=== PATIENT | female | born 1940 | race Caucasian/White ===

== ENCOUNTER 2025-06-09 13:30 | Outpatient (AMB) | payer OTHER, SELFPAY ==
[2025-06-09 13:40] VITALS: BMI 30.8
--- NOTE | 2025-06-09 13:40 | A.PHYSOV_ITS ---
Vital Signs 06/09/25 13:40 Height 5 ft 5 in Weight 185 lb BMI 30.8 Intake Visit Reasons: Bilateral knee injections Intake Note: Patient is a 84 year old female here today for bilateral knee pain. Senior Commissary Agent Required: No Allergies No Known Allergies Allergy (Verified 06/09/25 13:41) [facility] Social History Alcohol intake: current Alcohol intake frequency: does not drink Patient Tobacco Use Status: Never used Tobacco Physical Exam Vital Signs: BMI result Body Mass Index 30.8 Office Procedures AMB Knee Injection AMB Knee Injection Procedure Details: Bilateral Knee injection: The risks, benefits and complications of the left knee injection were discussed with the patient including but not limited to increased serum glucose, infection, nerve pain, fat atrophy, pigment augmentation, bleeding and pain. All questions were answered to the patient's satisfaction. Verbal consent was obtained. The patient was eager to proceed. Using aseptic technique with Betadine, ethyl chloride was then used to desensitize the skin. Using a 22-gauge needle 40 mg of Kenalog and 3 mL 2% lidocaine were injected into the knee joint. A Band-Aid was applied. Patient tolerated the procedure well without immediate complication. Postinjection instructions were given. The procedure was repeated on the right. Knee Injection - : Bilateral All charges added?: Procedure code (CPT) selection complete Office Meds Kenalog 40 mg/mL suspension for injection Performing Provider: RAJEEV Centeno Performing Location: [facility] Administered by: RAJEEV Centeno on 06/09/25 17:32 Dose Route Admin Location Dispensed Lot Number Expiration Date [facility] [employer] 40 mg intra-articular 1 mL [id number] [employer] Total Dispensed Waste 1 mL 0 % lidocaine (PF) 20 mg/mL (2 %) injection solution Performing Provider: RAJEEV Centeno Performing Location: [facility] Administered by: RAJEEV Centeno on 06/09/25 17:32 Dose Route Admin Location Dispensed Lot Number Expiration Date [facility] [employer] Traffic [employer] 60 mg intra-articular 5 mL [id number] [employer] Total Dispensed Waste 5 mL 40 % Assessment & Plan Assessment & Plan (1) Bilateral primary osteoarthritis of knee: Code(s): M17.0 - Bilateral primary osteoarthritis of knee Category: Medical Plan Ms. Wagner is a 84-year-old female seen in evaluation today for bilateral knee osteoarthritis. Today she consented to bilateral knee corticosteroid injection. She was given post-injection instructions, recommend: Moist heat compresses for 15 minutes up to 5 times daily. Continue low-impact activities such as walking, biking and swimming. Follow-up with our office as needed. Thank you for allowing me to participate in the care of your patient. Orders: Orders AMB Knee Injection Today M17.0 - Bilateral primary osteoarthritis of knee Coding Level of Care Code Procedure Only Diagnoses Bilateral primary osteoarthritis of knee M17.0 CPT Codes AMB Knee Injection - Hip/Bursa Injection - 83670: Bilateral ([id number])
--- OUTSIDE RECORDS SUMMARY | 2025-06-09 19:39 | XMS_ITS | Encounter Summary ---
Author Organization [facility] Address [address] [place] [address] Care Team Providers Care Electrical Tester Name Role Phone Crys Pwoer MD Primary Care Provider [phone] Encounter Details Date Type Department Care Team (Late st Contact Info) Description 03/27/2025 Lab Requisition [facility] - Main Lab [address] [facility] [place] [address] [place] [address] [place] [address] Frequency of micturition Social History Tobacco Use Types Packs/Day Years Used Date Smoking Tobacco: Never Smokeless Tobacco: Never Alcohol Use Standard Drinks/Week Comments Yes 0 (1 standard drink = 0.6 oz pur e alcohol) Housing Instability Answer Date Recorde d Are you worried that in the next 2 months you may not have stable housing? No 09/02/2024 Food Access & Nutrition Answer Date Rec orded Do you have access to a vari ety of food including fruits and vegetables? Yes 09/02/2024 Access to Healthcare Answer Date Record ed Within the last 3 months, ho w many times did you visit the emergency department for your medical care? 0 09/02/2024 Health Literacy Answer Date Recorded How often do you need to hav e someone help you when you read instructions, pamphlets, or other written material from your doctor or pharmacy? Never 09/02/2024 Caregiver: How often do you need to have someone help you when you read instructions, pamphlets, or other written material from your doctor or pharmacy? Not on file 09/02/2024 Financial Risk Answer Date Recorded How hard is it for you to pa y for the very basics like food, housing, medical care, and air conditioning / heating? Not very hard 09/02/2024 Transportation Answer Date Recorded Has the lack of transportati on kept you from meetings, work, or from getting things needed for daily living? No Has the lack of transportati on kept you from medical appointments or from getting medications? No 09/02/2024 Social Isolation Answer Date Recorded How often do you feel lonely or isolated from th ose around you? Rarely 09/02/2024 Food Risk Answer Date Recorded Within the past 12 months we worried whether our food would run out before we got money to buy more. Never true 09/02/2024 Within the past 12 months th e food we bought just didn't last and we didn't have money to get more. Never true 09/02/2024 Dependent Care Answer Date Recorded Do you need help finding or paying for care for your loved ones. For example, director child or elderly care for an older adult? No 09/02/2024 Education Answer Date Recorded Do you think completing more education or training, like finishing a GED, going to college, or learning a trade, would be helpful for you? No 09/02/2024 Employment and Income Answer Date Recor ded During the last four weeks, have you been actively looking for work? No 09/02/2024 Living Situation Answer Date Recorded What is your living situation? Unrecognized valu e 09/02/2024 Comments No Sex and Gender Information Value Date Recorded Sex Assigned at Female 05/07/2024 1:50 PM EST Legal Sex Female 7:41 AM EST Gender Identity Female 05/07/2024 1:50 PM EST Sexual Orientation Not on file documented as of this encounter Plan of Treatment Upcoming Encounters Date Type Department Care Team (Late st Contact Info) Description 07/16/2025 10:30 AM EST Ancillary Procedure [facility] - [facility] [address] [facility] [address] [place] [address] 10/06/2025 10:00 AM EDT Office Visit Adult Medicine [address] [phone] Geeta Alvarez PA [address] [place], [place] documented as of this encounter Procedures Procedure Name Priority Date/Time Associated Diagnosis Comments BACTERIAL IDENTIFICATION AND SUSCEPTIBILITY, AEROBIC Routine 03/26/2025 12:00 AM EDT Frequency of micturition documented in this encounter Results * Baterial identification and susceptibility, aerobic (03/26/2025 12:00 AM EDT) Culture, Bacterial ID and Sensitivity Light Normal Urogenital carmencita. 03/27/2025 11:46 AM EDT [facility] Other Urine specimen from urethra / Unknown 03/26/2025 03/27/2025 10:55 AM EDT us [facility] MICROBIOLOGY - GENERAL ORDERABLES Final Result [facility] [address] [place] [address], documented in this encounter Visit Diagnoses Diagnosis Frequency of micturition Urinary frequency documented in this encounter Additional Health Concerns Assessment Noted Time PHQ-9 Depression Total Score: 0 09/03/19 25 10:55 AM EDT documented as of this encounter Care Teams Electrical Tester Relationship Specialty Start Date End Date Crys Power MD [address] [place], [place] PCP - General 02/07/05 documented as of this encounter
--- OUTSIDE RECORDS SUMMARY | 2025-06-09 19:39 | XMS_ITS ---
[facility] Name [facility] Organization Unknown Encounters Encounter Type Encounter Reason Primary Diagnosis Location Date [facility] 05/27/2025 [facility] 05/06/2025 [facility] 04/29/2025 [facility] 04/22/2025 [facility] 04/15/2025 Care Team Organization Name Specialty Phone Email Start Date End [facility] 04/16/2025
--- OUTSIDE RECORDS SUMMARY | 2025-06-09 19:39 | XMS_ITS | Encounter Summary ---
[facility] Address [address] [place] [address] Care Team Providers Care Tread Booker Name Role Phone Crys Power MD Primary Care Provider [phone] Encounter Details Date Type Department Care Team (Late st Contact Info) Description 04/08/2025 Results Follow-Up Adult Medicine [facility] [address] [place], [place] [phone] Crys Power MD [address] [place], [place] Social History Tobacco Use Types Packs/Day Years [...] care for your loved ones. For example, children's minister or elderly care for an older adult? [...] Description 07/16/2025 10:30 AM EST Ancillary Procedure [facility] - [facility] [address] [facility] [address] [place] [address] 10/06/2025 10:00 AM EDT Office Visit Adult Medicine [address] [phone] Geeta Alvarze PA [address], [place] documented as of this encounter Visit Diagnoses Not on filedocumented in this encounter Additional Health Concerns Assessment Noted Time PHQ-9 Depression Total Score: 0 09/03/19 25 10:55 AM EDT documented as of this encounter Care Teams Tread Booker Relationship Specialty Start Date End Date Crys Power MD [address], [place] PCP - General 02/07/05 documented as of this encounter
--- OUTSIDE RECORDS SUMMARY | 2025-06-09 19:39 | XMS_ITS | Data Portability ---
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 Audiometric testing was repeated with results as noted below. Overall mild worsening of her hearing bilaterally consistent with presbycusis. I recommended full-time use of left-sided amplification, particularly in light of the recent data looking at the connection between untreated hearing loss and dementia, accidents, and falls. She will continue to follow-up with her wastewater engineer Manda Abel for hearing aid maintenance. We will set her up for a hearing aid maintenance visit with Manda. We did discuss the fact that she would be a good candidate to consider amplification for the right ear, and they can discuss this in more detail if she would like. Not available 10/23/2024 15:38:05 Plan of Treatment Reminders Order Date Submit Date Provider Last Modified By Organization Details Last Modified Time Details Appointments None record ed. Lab None record ed. Referral None record ed. Procedures None record ed. Surgeries None record ed. Imaging None record ed. Medication Orders None record ed. Patient TargetsNo targets recorded. Patient InstructionsNo instructions recorded. Reason for Referral None Reported. Results Created Date Observation Date Name Description Value Unit Range Abnormal Flag Note LastModifiedBy Organization Detail LastModifiedTime 10/25/19 audio gram No observ ation record ed. BARCODE Not Available 2024 09:58:56 10/25/1910/10/2024 MRI, orbit s + neck, w/wo contr ast No observ ation record ed. [email or web address] Not Available 06/2024 11:22:06 Result Notes None recorded. 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; Note: Date Diagnose d: 7 4:40 PM (D10.4) Not Available [facility] 4 02:13:21 Tinnitus of vascular origin 675380147 Completed 202001/26/2024 Pulsatil e tinnitus , left ear; Note: Date Diagnose d: 1 11:30 AM (H93.A2) Not Available [facility] 4 02:15:39 Sensorin eural hearing loss of bilatera l ears 264733588 Active 2020 Sensorin eural hearing loss, bilatera l; Note: Date Diagnose d: 1 1:35 PM (H90.3) Not Available [facility] 4 02:13:52 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; Note: Date Diagnose d: 1 1:12 PM (D44.7) Not Available [facility] 4 02:12:46 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 and related structur es: Glomus jugulare ; Note: Date Diagnose d: 1 1:12 PM (227.6) Not Available [facility] 4 02:15:25 Follow-u p visit Active 2020 Medical surveill ance followin g complete d treatmen t; Note: Date Diagnose d: 04/05/20 21 3:45 PM (Z09) Not Available [facility] 4 02:14:05 Mixed conducti ve and sensorin eural hearing loss of left ear 30326306950 107 Active 2020 Mixed conducti ve and sensorin eural hearing loss, unilater al, left ear with restrict ed hearing on the contrala teral side; Note: Date Diagnose d: 05/11/20 21 2:36 PM (H90.A32 ) Not Available [facility] 4 02:15:14 Dysphoni a 95838741 Active 2021 Hoarsene ss; Note: Date Diagnose d: 2 11:30 AM (R49.0) Not Available [facility] 4 02:14:18 Impacted cerumen in left ear 94341715146 64505 Active 2021 Impacted cerumen, left ear; Note: Date Diagnose d: 04/07/20 22 10:29 AM (H61.22) FAITH BHARDWAJ MD [address] [facility] [place],[facility], [place], [address] , [facility] - [facility] 5 14:27:23 Tinnitus of left ear 73410937480 06 Active 2021 Tinnitus , left ear; Note: Date Diagnose d: 04/07/20 22 11:04 AM (H93.12) Not Available [facility] 4 02:12:52 Sensorin eural hearing loss of bilatera l ears 798909841 Active 2024 FAITH BHARDWAJ MD [address] [facility] [place] [address], [place], [address] , [facility] - [facility] 5 15:32:36 Problem Notes None recorded. Procedures Surgical History Date Name Laterality Status Provider Name and Address Organization Details Recorded Time 5 Comp Audio with Tymps - 42663 & 48714 completed EDWIN RODRIGUEZ [place], CCC-A [address] [facility], [place], [address], [facility] - [facility] 10/23/2024 15:11:43 5 Cerumen removal with microscope left completed FAITH BHARDWAJ MD [address] [facility],[place] [address], [place], [address], [facility] - [facility] 10/23/2024 14:27:08 Imaging Results None recorded. Procedure Notes None recorded. Medical Equipment None Reported. Allergies Allergen ID Allergen Name Allergen Category Reaction Reaction Severity Criticality Documentation Date Start Date Code Code System Note Provider Name and Address Organization Details Recorded Time 24564 Bactrim medicatio n other Not available Not available 11/07/2023 41668 9 RxNorm React ion: unkno wn, unspe cifie d;; Not Available [facility] 4 00:48:27 31290 amoxicill in medicatio n other Not available Not available 11/07/2023 723 RxNorm React ion: unkno wn, unspe cifie d;; Not Available [facility] 4 00:48:31 Medications Name Sig Start Date Stop Date Status Note LastModified by Organization Details LastModified Time oxybutyni n chloride ER 10 mg tablet,ex tended release 24 hr 10/23 completed Medicati on ID: [id number] B rand Name: oxybutyn in chloride Send Method: E-Prescr ibed Sub s Allowed: subs OK Medic ationGen ericName : oxybutyn in chloride Not Available Not Available Not Available ofloxacin 0.3 % eye drops 4 drop 10/23 completed Medicati on ID: [id number] D uration Value: 14 Prescri bed By Name: PALMIRA Barron nd Name: ofloxaci n Send Method: E-Prescr ibed Sub s Allowed: subs OK Speci al Instruct ion: apply 4 drops to left ear twice daily x 2 weeks Me dication GenericN guille: ofloxaci n Not Available Not Available Not Available benzonata te 200 mg capsule TAKE 1 CAPSULE BY MOUTH THREE TIMES DAILY 10/23 completed Not Available Not Available Not Available spironola ctone 25 mg tablet TAKE 1 TABLET BY MOUTH DAILY active Not Available Not Available No t Available carvedilo l 3.125 mg tablet TAKE 1 TABLET BY MOUTH TWICE DAILY WITH MEALS active Not Available Not Available No t Available erythromy priya 5 mg/gram (0.5 %) eye ointment APPLY A SMALL AMOUNT INTO BOTH EYES FOUR TIMES A DAY TO INCISION SITES FOR 1 WEEK. active Not Available Not Available No t Available neomycin- polymyxin -dexameth 3.5 mg/mL-10, 000 unit/mL-0 .1% eye drops SHAKE LIQUID AND INSTILL 1 DROP IN LEFT EYE FOUR TIMES DAILY FOR 2 WEEKS THEN STOP 10/23 completed Not Available Not Available Not Available losartan 25 mg tablet TAKE 1 TABLET BY MOUTH DAILY active Not Available Not Available No t Available omeprazol e 20 mg capsule,d elayed release TAKE 1 CAPSULE BY MOUTH DAILY active Not Available Not Available No t Available furosemid e 20 mg tablet TAKE 1 TABLET BY MOUTH DAILY active Not Available Not Available No t Available lovastati n 20 mg tablet TAKE 1 TABLET BY MOUTH AT BEDTIME active Not Available Not Available No t Available oxycodone 5 mg tablet 1 tablet by mouth 10/23 completed Medicati on ID: [id number] D uration Value: 3 Prescri bed By Name: Julia Chacon nd Name: oxycodon e Send Method: E-Prescr ibed Sub s Allowed: subs OK Medic ationGen ericName : oxycodon e Not Available Not Available Not Available neomycin 3.5 mg/g-poly myxin B 10,000 unit/g-de xameth 0.1 % eye oint APPLY A SMALL AMOUNT ON EYELID FOUR TIMES A DAY. APPLY TO INCISION SITE FOR ONE WEEK THEN STOP. 10/23 completed Not Available Not Available Not Available escitalop tara 10 mg tablet 10/04 completed Medicati on ID: [id number] D uration Value: 90 Brand Name: escitalo pram oxalate Send Method: E-Prescr ibed Sub s Allowed: subs OK Speci al Instruct ion: TK 1 T PO D Medica tionGene ricName: escitalo pram oxalate Not Available Not Available Not Available escitalop tara 20 mg tablet TAKE 1 TABLET BY MOUTH DAILY active Not Available Not Available No t Available hydrochlo rothiazid e 12.5 mg tablet 10/23 completed Medicati on ID: [id number] D uration Value: 90 Brand Name: hydrochl orothiaz altaf Send Method: E-Prescr ibed Sub s Allowed: subs OK Speci al Instruct ion: TK 1 T PO D Medica tionGene ricName: hydrochl orothiaz altaf Not Available Not Available Not Available Myrbetriq 50 mg tablet,ex tended release 10/06 completed Medicati on ID: [id number] B rand Name: Omar messina Send Method: E-Prescr ibed Sub s Allowed: subs OK Medic ationGen ericName : Omar messina Not Available Not Available Not Available Eliquis 5 mg tablet TAKE 1 TABLET BY MOUTH TWICE DAILY active Not Available Not Available No t Available Vitals None Recorded Social History None recorded. Functional Status None recorded. Mental Status None recorded. Family History Nothing Reported. Medical History Condition Response Hypertension Y Anxiety Y Depression Y High Cholesterol Y GERD/Reflux Y Gynecological HistoryNo gynecological history recorded. 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 Nino for post treatment MRI surveillan ce for her left glomus jugulare tumor.Sergio mmend follow-up with me in 2 years Impacted c erumen in left ear 5989321710 299391 H61.22 9439268 Dry hard impacted cerumen was removed from the left external auditory canal. Sensorineu ral hearing loss of bilateral ears 697697709 H90.3 Audiologic al evaluation results:Ri ght ear:Normal hearing thru 1500Hz sloping to a mild to moderate SNHL with excellent word recognitio n.Left ear:Normal hearing at 250Hz sloping to a mild to moderate SNHL with excellent word recognitio n.Tympanom etry:Right Ear:Type ALeft Ear:[place] [id number] RYAN [facility] [place] [address] [facility],[place] [address] [place] [phone] 12/10/2024 13:54:14 12/12/2024 10:36:25 Sensorineural hearing loss of bilateral ears 497111587 H90.3 Health Concerns Section Related Observation LastModified by Organization Detai ls LastModified Time None Recorded Concern Status LastModified by Organization Details LastModified Time None Recorded Advance Directives Directive None Recorded Payers Insurance Date Sequence Insurance Name Policy Number Policy Pop Covered Member ID Pop Member ID Guarantor Name 12/10/2024 1 [employer] (MEDICARE REPLACEMENT/ ADVANTAGE - PPO) Ashleigh Wagner [id number] Ashleigh K Bernard Notes Date Note Type Note Provider Name and Address Organization Details Recorded Time 10/23/2024 text/html 83-year-old female with 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 She underwent subsequent stereotactic radiosurgery treatment with Dr. Nino between 2020 and 2021. Patient last seen by me back in 2022 at which point she was doing well posttreatment and getting serial MRI scans with Dr. Nino. Last MRI scan was a couple of weeks ago which showed no change in the 15 x 10 x 10 mm enhancing mass at the lateral margin of the left jugular foramen. Next MRI planned for another year from now. Patient has bilateral sensorineural hearing loss and currently using left-sided hearing aid dispensed through our office. She is quite pleased with this technology. Last hearing test was about 2 years ago. No pulsatile tinnitus. FAITH BHARDWAJ MD [address] [place] [address], [place], [address], [facility] - [facility] 10/23/2024 15:38:55 OBGyn Episode No OBEpisode recorded.
--- OUTSIDE RECORDS SUMMARY | 2025-06-09 19:39 | XMS_ITS | Encounter Summary ---
Author Organization [facility] Address [address] [place] [address] Care Team Providers Care Hard Tile Setter Name Role Phone Crys Power MD Primary Care Provider [phone] Encounter Details Date Type Department Care Team (Late st Contact Info) Description 09/19/2024 Lab Requisition [facility] - Main Lab [address] [facility] [place] [address] Luz Elena Mcginnis NP [address] [facility] [address] [place] [address] Frequency of micturition Social History Tobacco Use [...] care for your loved ones. For example, child and family therapist or elderly care for an older adult? [...] Description 07/16/2025 10:30 AM EST Ancillary Procedure [facility] [address] [facility] [address] [place] [address] 10/06/2025 10:00 AM EDT Office Visit Adult Medicine [address] [phone] Geeta Alvarez PA [address] [place], [place] documented as of this encounter Procedures Procedure Name Priority Date/Time Associated Diagnosis Comments BACTERIAL IDENTIFICATION AND SUSCEPTIBILITY, AEROBIC Routine 09/18/2024 12:00 AM EDT Frequency of micturition documented in this encounter Results * Bacterial identification and susceptibility, aerobic (09/18/2024 12:00 AM EDT) Culture, Bacterial ID and Sensitivity Multiple bacterial morphotypes present consistent with either contamination or urogenital carmencita. Suggest repeat specimen, if clinically indicated. 09/19/2024 10:52 AM EDT [facility] Other Urine specimen from urethra / Unknown 09/18/2024 09/19/2024 10:08 AM EDT us Luz Elena Mcginnis CUT OFF [facility] MICROBIOLOGY - GENERA L ORDERABLES Final Result [facility] [address] [place] [address], documented in this encounter Visit Diagnoses Diagnosis Frequency of micturition Urinary frequency documented in this encounter Additional Health Concerns Assessment Noted Time PHQ-9 Depression Total Score: 0 09/03/19 25 10:55 AM EDT documented as of this encounter Care Teams Hard Tile Setter Relationship Specialty Start Date End Date Crys Power MD [address] [place], [place] PCP - General 02/07/05 documented as of this encounter
--- OUTSIDE RECORDS SUMMARY | 2025-06-09 19:40 | XMS_ITS | Clinical Summary ---
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 Active escitalopram (LEXAPRO) 20 mg tablet Take 1 tablet (20 mg total) by mouth 1 (one) time each day. 90 each 03/19/2025 Active omeprazole (PriLOSEC) [address] capsule Take 1 capsule (20 mg total) by mouth 1 (one) time each day before breakfast. 90 capsule 03/19/2025 Active furosemide (LASIX) 20 mg tablet Take 1 tablet every other day 90 each 3 04/01/2025 Active losartan (COZAAR) 25 mg tablet Take 1 tablet (25 mg total) by mouth at bedtime. 90 tablet 1 04/07/2025 Active apixaban (Eliquis) 5 mg tablet Take 1 tablet (5 mg total) by mouth 2 (two) times a day. 180 tablet 1 04/07/2025 Active spironolactone (ALDACTONE) 25 mg tablet Take 0.5 tablets (12.5 mg total) by mouth 1 (one) time each day. 45 tablet 1 04/07/2025 Active lovastatin (MEVACOR) 20 mg tablet Take 1 tablet (20 mg total) by mouth at bedtime. 90 tablet 1 04/07/2025 Active carvediloL (COREG) 3.125 mg tablet Take 1 tablet (3.125 mg total) by mouth 2 (two) times a day with meals. 180 each 1 04/07/2025 Active Active Problems Problem Noted Date Diagnosed Date Prediabetes 09/19/2023 CHF (congestive heart failure) 01/06/2023 Overview (07/16/2024): Assessment & Plan (04/01/2025 10:14 AM EDT): She does not have overt volume overload but shortness of breath with physical activity. Suggest her to change to furosemide 20 mg every other day. Will repeat BMP in 1 to 2 weeks. Orders: ECG 12 lead Transthoracic echocardiogram (TTE) complete with PRN contrast, bubble, strain, and 3D order panel; Future Assessment & Plan (08/22/2024 12:26 PM EST): Patient has a history of congestive heart failure. She does have some mild crackles in the lower lobes bilaterally, mild BLE edema, and an intermittent but persistent cough since having COVID in February. She also notes SOLIZ when walking up an incline or climbing stairs. Will restart Lasix 20 mg daily and have asked her to contact her provider if this does not improve her symptoms. If no improvement, may consider discontinuation of Lasix. Will have her update BMP and BNP in 2 weeks. She will continue to monitor her weight and contact provider if it increases more than 2 lbs overnight or 4-5 lbs over the course of a week, or if she has any worsening shortness of breath or edema. 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 Will update echocardiogram to reassess LV function. Assessment & Plan (08/22/2024 12:26 PM EST): She has a history of cardiomyopathy likely in the setting of uncontrolled atrial fibrillation. Her most recent echo in February 2023 preserved, low normal left ventricular systolic function with LVEF 50 to 55% and grade 2 left ventricular diastolic dysfunction. Continue with carvedilol, losartan, spironolactone and furosemide as prescribed. Atrial fibrillation 11/03/2022 Overview (07/16/2024): Assessment & Plan (04/01/2025 10:14 AM EDT): Has remained in sinus rhythm. Will continue Eliquis and low-dose carvedilol. Assessment & Plan (08/22/2024 12:26 PM EST): History of atrial fibrillation status post cardioversion. Per EKG done in the office today she remains in sinus bradycardia with heart rate of 49 bpm. She monitors her heart rate/rhythm with an Qool Watch on reports HR generally runs in the low to mid 50s. Strips reviewed today did not reveal any new episodes of atrial fibrillation however she did have several strips with frequent PACs. Not making any changes to carvedilol at this time. She has a [id number] score of 5 and will continue on Eliquis for stroke risk reduction. 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 Needs colposcopy after 1 month of estragen vaginal cream. Colposcopy 04/05/2013 - negative. Pap 02/28/2014 - normal and negative HPV, repeat Pap 3 years per ASCCP guidelines Last Assessment & Plan: I reviewed with Ashleigh that, based on her previous Pap history, ASCCP recommendations would have been for repeat cotesting in 3 years from last (2013). She was counseled that although the risk of cervical cancer is low related to positive HPV only, and likely lower given recent negative HPV in 2013, the risk is not zero. The reason for ASCCP recommendations is so that we do not miss any cancer diagnoses over time. She voiced understanding of this, but declined further Pap smear screening. She agrees to continue every 1-2 year pelvic exams. Bunion 11/07/2011 GE reflux 09/24/2009 Osteopenia 03/02/2006 Overview (05/13/2024): T-1.2 spine, -0.3 hip 04/02, improved 03/06 T score spine 0-0.1 hip -0.8 FRAX score 22% 10 year fracture risk Completed 5 years fosamax, discontinued 03/06 Hypercholesterolemia 03/02/2006 Encounters Date Type Department Care Team Description 04/08/2025 Results Follow-Up Adult Medicine [address] [phone] Crys Power MD 04/07/2025 1:00 PM EDT Office Visit Adult Medicine [address] [phone] Crys Power MD Primary hypertension (Primary Dx); Atrial fibrillation, unspecified type (CMS/HCC V24, CMS/HCC V28); Chronic right-sided congestive heart failure (CMS/HCC V24, CMS/HCC V28); Hypercholesterolemia ; Prediabetes; Abnormal red cell volume 04/02/2025 Results Follow-Up Adult [address] [phone] Geeta Alvarez PA 04/01/2025 9:50 AM EDT Office Visit [facility] [address] [place] [address] Jai Gray MD Chronic congestive heart failure, unspecified heart failure type (CMS/HCC V24, CMS/HCC V28) (Primary Dx); Atrial fibrillation, unspecified type (CMS/HCC V24, CMS/HCC V28); Cardiomyopathy, unspecified type (CMS/HCC V24, CMS/HCC V28) 03/27/2025 Lab Requisition [facility] - Main Lab [address] [facility] [address] Areli Lord PA Frequency of micturition from Last 3 Months Immunizations Immunization Administration Dates Next Due COVID-19 (Moderna/Spikevax) 12yo and older 03/05/2025,03/24/2023 H1N1 Inj Preservative Free 08/10/2009 Influenza Quadravalent, 0.5m l (Fluzone High-dose) 65yo and older 03/24/2023,03/25/2022 Influenza trivalent, 0.5mL ( Fluad) 65yo and older 03/24/2023,03/25/2022,03/16/2021,03/06,04/02/2015 Influenza trivalent, 0.5mL ( Fluzone High-dose) 65yo and older 03/05/2025,04/08/2024,03/16/2021,04/05,03/06/2017,04/15/2016,04/02/2015 Influenza trivalent, 0.5mL, preservative free (Fluarix; FluLaval; Fluzone) ages 6mo and older (Afluria) 3 years and older 03/04/2020,03/23/2009 Influenza trivalent, with pr eservative (Fluzone; Afluria) 6mo and older 02/27/2014,02/28/2010,03/23/2009 Influenza, Unspecified 03/04/2020,2018,04/26/2018,04/15,02/27/2014,03/15/2013,02/29/2012 Moderna (age 6mo & older) Bi valent, COVID-19, 0.5 mL or 0.25 mL dosage 03/25/2022 Moderna SARS-CoV-2 COVID-19, mRNA, LNP-S, preservative free 08/12/2020 Pneumococcal conjugate 13 va lent (Prevnar 13, PCV13) 2mo and older 05/14/2015 Pneumococcal conjugate 20 va lent (Prevnar 20, PCV 20) 2mo and older 09/09/2024 Pneumococcal polysaccharide 23 valent (Pneumovax 23) 2yo and older 01/05/2009 RSV, bivalent, protein subun it RSVpreF, 0.5mL, Preservative Free (ABRYSVO) 50yo and older or 32 through 36 wks of 05/12/2023 Respiratory syncytial virus (RSV), unspecified 05/12/2023 Td Tetanus diptheria (Tdvax) 7yo and older 11/23/2022,10/31/2005 Tdap Tetanus diptheria acell ular pertussis (Boostrix; Adacel) 7yo and older 08/02/2012 Zoster Live 04/26/2012 Zoster recombinant (Shingrix ) 19yo and older 03/12/2018,10/20/2017 Surgical History Surgery Date Site/Laterality Comments SECTION APPENDECTOMY HEMORRHOID SURGERY COLONOSCOPY 03/13/2014 tics and hemorrhoids; would not repeat FOOT SURGERY 2011 Right : hammer toe BREAST BIOPSY 1997ish Right : rt brst, b9 SCREENING MAMMOGRAM 08/28/2023 Bilateral Medical History Medical History Date Comments Pure hypercholesterolemia 03/02/2006 GE reflux 09/24/2009 DX:GE reflux Rotator cuff tear 08/24/2012 HTN (hypertension) 03/15/2013 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 3 hip 04/02, improved 03/06 T score spine 0-0.1 hip -0.8 FRAX score 22% 10 year fracture risk Completed 5 years fosamax, discontinued 03/06 Atrial [place] [place] [facility] [place] 11/03/2022 CHF (congestive heart failur e) [place] [place] [facility] [place] 01/06/2023 Cervical high risk HPV (davey n papillomavirus) test positive 05/16/20122012, second positive HP V. Needs colposcopy after 1 month of estragen vaginal cream. Colposcopy 04/05/2013 - negative. Pap 02/28/2014 - normal and negative HPV, repeat Pap 3 years per ASCCP guidelines Last Assessment & Plan: I reviewed with Ashleigh that, based on her previous Pap history, ASCCP recommendations would have been for repeat cotesting in 3 years from last (2013). She was Family History Medical History Relation Name Comments Breast cancer Aunt paternal, when elderly Lung cancer Brother Colon cancer Father 78 Heart failure Mother 91 Colon cancer Neg Hx Ovarian cancer Neg Hx Uterine cancer Neg Hx Relation Name Status Comments Aunt Brother Father Mother Social History Tobacco Use Types Packs/Day Years Used Date Smoking Tobacco: Never Smokeless Tobacco: Never Tobacco Cessation:Counseling Given: Not Answered Alcohol Use Standard Drinks/Week Comments Yes 0 [...] care for your loved ones. For example, auto care center manager or elderly care for an older adult? [...] PM EST Sexual Orientation Not on file Obstetrics History Para Term AB IAB SAB Ectopic Multiple Livin g Live Births 3 3 3 3 Date Outcome GA Total Labor Labor/2nd/3rd Weight Sex Type Anes PTL Cassie A1 A5 Name Clin Term Term Term Last Filed Vital Signs Vital Sign Reading Time Taken Comments Blood Pressure 128/84 04/07/2025 12:59 PM EDT Pulse 57 04/07/2025 12:59 PM EDT Temperature 36.6 C (97.9 F) 09/09/2024 11:02 AM EDT Respiratory Rate 18 04/07/2025 12:59 PM EDT Oxygen Saturation 97% 04/01/2025 9:35 AM EDT Inhaled Oxygen Concentration - - Weight 84.8 kg (187 lb) 04/07/2025 12:59 PM EDT Height 154.9 cm (5' 1 ) 04/07/2025 12:59 PM EDT Body Mass Index 35.33 04/07/2025 12:59 PM EDT Plan of Treatment Upcoming Encounters Date Type Department Care Team (Late st Contact Info) Description 07/16/2025 10:30 AM EST Ancillary Procedure [facility] [address] [place] [address] 10/06/2025 10:00 AM EDT Office Visit Adult Medicine [facility] [address] [place] [phone] Geeta Alvarez PA [address] [place] [address] Health Maintenance Due Date Last Done Comments Zoster Vaccines (3 of 3) 05/07/2018 018, 10/20/2017, 04/26/2012 COVID-19 Vaccine ( season) 2025 03/05/2025, 03/24/2023, 03/25/2022, Additional history exists Social Influencers of Health Screening 09/02/2025 09/02/2024 Medicare Annual Wellness Visit 09/09/2025 09/09/2024 Hypertension/CHF/CAD Annual BMP Blood Test 04/01/2026 04/01/2025, 09/06/2024, 07/23/2024, Additional history exists Falls Risk Assessment 04/07/2026 04/07/2025 Cholesterol Screening (Lipid Panel) 04/01/2030 04/01/2025, 07/23/2024, 09/19/2023 DTaP,Tdap,and Td Vaccines (4 - Td or Tdap) 11/23/2032 11/23/2022, 08/02/2012, 10/31/2005 Osteoporosis Screening (Bone Density Screening) 05/25/2033 05/25/2023, 08/25/2020, 09/08/2016 RSV Immunization Adult Patients Completed 05/12/2023, 05/12/2023 RSV Immunization Patients Under 20 months Aged Out 05/12/2023 No longer eligible based on patient's age to complete this topic Pneumococcal Vaccine: 50+ Years Completed 09/09/2024, 05/14/2015, 01/05/2009 Influenza Vaccine Completed 03/05/2025, , 03/24/2023, Additional history exists Depression Screening Completed 03/31/2025 HIB Vaccines Aged Out No longer eligi ble based on patient's age to complete this topic HPV Vaccines Aged Out No longer eligi ble based on patient's age to complete this topic Hepatitis A Vaccines Aged Out No long er eligible based on patient's age to complete this topic Hepatitis B Vaccines Aged Out No long er eligible based on patient's age to complete this topic IPV Vaccines Aged Out No longer eligi ble based on patient's age to complete this topic MMR Vaccines Aged Out No longer eligi ble based on patient's age to complete this topic Meningococcal ACWY Vaccine Aged Out N o longer eligible based on patient's age to complete this topic Meningococcal B Vaccine Aged Out No l onger eligible based on patient's age to complete this topic Varicella Vaccines Aged Out No longer eligible based on patient's age to complete this topic Procedures Procedure Name Priority Date/Time Associated Diagnosis Comments VITAMIN B12 AND FOLATE Routine 1:27 PM EDT Abnormal red cell volume CBC WITH AUTO DIFFERENTIAL Routine 04/01/2025 12:46 PM EDT Vitamin D insufficiency Prediabetes Primary hypertension Hypercholesterolemi a Atrial fibrillation, unspecified type (CMS/HCC V24, CMS/HCC V28) Osteopenia, unspecified location Chronic right-sided congestive heart failure (CMS/HCC V24, CMS/HCC V28) Severe obesity (BMI 35.0-35.9 with comorbidity) (CMS/HCC V24, CMS/HCC V28) Current severe episode of major depressive disorder without psychotic features, unspecified whether recurrent (CMS/HCC V24, CMS/HCC V28) HEMOGLOBIN A1C Routine 04/01/2025 12:46 PM EDT Prediabetes CBC AND DIFFERENTIAL Routine 04/01/2025 12:46 PM EDT Vitamin D insufficiency Prediabetes Primary hypertension Hypercholesterolemi a Atrial fibrillation, unspecified type (CMS/HCC V24, CMS/HCC V28) Osteopenia, unspecified location Chronic right-sided congestive heart failure (CMS/HCC V24, CMS/HCC V28) Severe obesity (BMI 35.0-35.9 with comorbidity) (CMS/HCC V24, CMS/HCC V28) Current severe episode of major depressive disorder without psychotic features, unspecified whether recurrent (CMS/HCC V24, CMS/HCC V28) COMPREHENSIVE METABOLIC PANEL Routine 04/01/2025 12:46 PM EDT Vitamin D insufficiency Prediabetes Primary hypertension Hypercholesterolemi a Atrial fibrillation, unspecified type (CMS/HCC V24, CMS/HCC V28) Osteopenia, unspecified location Chronic right-sided congestive heart failure (CMS/HCC V24, CMS/HCC V28) Severe obesity (BMI 35.0-35.9 with comorbidity) (CMS/HCC V24, CMS/HCC V28) Current severe episode of major depressive disorder without psychotic features, unspecified whether recurrent (CMS/HCC V24, CMS/HCC V28) LIPID PANEL WITH REFLEX TO DIRECT LDL Routine 04/01/2025 12:46 PM EDT Hypercholesterolemi a VITAMIN D 25 HYDROXY Routine 04/01/2025 12:46 PM EDT Vitamin D insufficiency Prediabetes Primary hypertension Hypercholesterolemi a Atrial fibrillation, unspecified type (CMS/HCC V24, CMS/HCC V28) Osteopenia, unspecified location Chronic right-sided congestive heart failure (CMS/HCC V24, CMS/HCC V28) Severe obesity (BMI 35.0-35.9 with comorbidity) (CMS/HCC V24, CMS/HCC V28) Current severe episode of major depressive disorder without psychotic features, unspecified whether recurrent (CMS/HCC V24, CMS/HCC V28) ECG 12-LEAD Routine 04/01/2025 9:42 AM EDT Chronic congestive heart failure, unspecified heart failure type (CMS/HCC V24, CMS/HCC V28) BACTERIAL IDENTIFICATION AND SUSCEPTIBILITY, AEROBIC Routine 03/26/2025 12:00 AM EDT Frequency of micturition DXA BONE DENSITY STUDY 1+ SITS AXIAL SKEL Routine 05/25/2023 9:09 AM EST Disorder of bone, unspecified Disorder of cartilage, unspecified from Last 3 Months or Most Recently Relevant to Health Maintenance Results * (ABNORMAL) Vitamin B12 and folate (04/07/2025 1:27 PM EDT) [facility] Vitamin B-12 320 250 - 900 pcg/mL LAB CHEMISTRY METHOD 04/07/2025 5:[address] [facility] Folate >20.0(H) 2.8 - 17.0 ng/ml LAB CHEMISTRY METHOD 04/07/2025 5:[address] [facility] Blood Venous blood specimen / Unknown Venipuncture / Unknown 04/07/2025 1:27 PM EDT 04/07/2025 1:27 PM EDT us Crys Power MD LAB BLOOD ORDERABLES Final Resul t [facility] [address] [place] [address], [place] [phone] * (ABNORMAL) Lipid panel with reflex to direct LDL (04/01/2025 12:46 PM EDT) [facility] Cholesterol 225(H) 0 - 200 mg/dL LAB CHEMISTRY METHOD 04/01/2025 4:[address] [facility] Triglycerides 175(H) 0 - 150 mg/dL LAB CHEMISTRY METHOD 04/01/2025 4:[address] [facility] HDL 121 >=40 mg/dL LAB CHEMISTRY METHOD 04/01/2025 4:[address] [facility] LDL Calculated 69 0 - 100 mg/dL LAB CHEMISTRY METHOD 04/01/2025 4:[address] [facility] Comment:Estimated LDL Calcul ated using equation: Total cholesterol - HDL cholesterol - (Triglycerides/5) VLDL Cholesterol Chema 35 mg/dL LAB CHEMISTRY METHOD 04/01/2025 4:[address] [facility] Non HDL Chol. (LDL+VLDL) 104 <145 mg/dL LAB CHEMISTRY METHOD 04/01/2025 4:[address] [facility] Chol/HDL Ratio 1.9 0.0 - 4.4 LAB CHEMISTRY METHOD 04/01/2025 4:[address] [facility] Blood Venous blood specimen / Unknown Venipuncture / Unknown 04/01/2025 12:46 PM EDT 04/01/2025 12:46 PM EDT us Geeta BOO LAB BLOOD ORDERABLES Final Re sult [facility] [address] [place] [address], * (ABNORMAL) CBC auto differential (04/01/2025 12:46 PM EDT) WBC 6.9 4.8 - 10.8 K/mcL LAB HEMETOLOGY METHOD 04/01/2025 3:[address] [facility] RBC 4.00 3.80 - 4.80 M/mcL LAB HEMETOLOGY METHOD 04/01/2025 3:[address] [facility] Hemoglobin 13.3 11.5 - 16.0 g/dL LAB HEMETOLOGY METHOD 04/01/2025 3:[address] [facility] Hematocrit 39.7 35.0 - 47.0 % LAB HEMETOLOGY METHOD 04/01/2025 3:[address] [facility] MCV 99.3(H) 79.0 - 98.0 FL LAB HEMETOLOGY METHOD 04/01/2025 3:[address] [facility] MCH 33.3(H) 27.0 - 32.0 pcg LAB HEMETOLOGY METHOD 04/01/2025 3:[address] [facility] MCHC 33.5 32.0 - 37.0 g/dL LAB HEMETOLOGY METHOD [facility] RDW 13.3 11.0 - 15.0 % LAB HEMETOLOGY METHOD 04/01/2025 3[facility] Platelets 352 130 - 400 K/mcL LAB HEMETOLOGY METHOD 04/01/2025 3:[address] [facility] MPV 10.6 7.0 - 11.0 FL LAB HEMETOLOGY METHOD 04/01/2025 3:27 [facility] NRBC 0.0 <1.0 % LAB HEMETOLOGY METHOD 04/01/2025 3:27 PM [facility] NRBC Absolute 0.00 <0.10 K/mcL LAB HEMETOLOGY METHOD 04/01/2025 3:27 PM [facility] Neutrophils Relative 58.8 % LAB HEMETOLOGY METHOD 04/01/2025 3:27 PM [facility] Lymphocytes Relative 30.0 % LAB HEMETOLOGY METHOD 04/01/2025 3:27 PM [facility] Monocytes Relative 8.6 % LAB HEMETOLOGY METHOD 04/01/2025 3:27 PM [facility] Eosinophils Relative 1.3 % LAB HEMETOLOGY METHOD 04/01/2025 3:27 PM [facility] Basophils Relative 0.7 % LAB HEMETOLOGY METHOD 04/01/2025 3:27 PM [facility] Immature Granulocytes Relative 0.6 % LAB HEMETOLOGY METHOD 04/01/2025 3:27 PM [facility] Neutrophils Absolute 4.06 1.50 - 7.00 K/mcL LAB HEMETOLOGY METHOD 04/01/2025 3:[address] [facility] Lymphocytes Absolute 2.07 1.00 - 5.00 K/[facility] LAB HEMETOLOGY METHOD 04/01/2025 3:[address] [facility] Monocytes Absolute 0.59 0.20 - 1.00 K/[facility] LAB HEMETOLOGY METHOD 04/01/2025 3:[address] [facility] Eosinophils Absolute 0.09 0.00 - 0.50 K/[facility] LAB HEMETOLOGY METHOD 04/01/2025 3:[address] [facility] Basophils Absolute 0.05 0.00 - 0.20 K/[facility] HEMETOLOGY METHOD 04/01/2025 3:[address] [facility] Immature Granulocytes Absolute 0.04(H) 0.00 - 0.03 K/[facility] LAB HEMETOLOGY METHOD 04/01/2025 3:[address] [facility] Blood Venous blood specimen / Unknown Venipuncture / Unknown 04/01/2025 12:46 PM EDT 04/01/2025 12:46 PM EDT us Geeta BOO LAB BLOOD ORDERABLES Final Re sult [facility] [address] [place] [address], * Vitamin D 25 hydroxy (04/01/2025 12:46 PM EDT) Vit D, 25-Hydroxy 33.6 30.0 - 80.0 ng/mL LAB CHEMISTRY METHOD 04/01/2025 5:[address] [facility] Blood Venous blood specimen / Unknown Venipuncture / Unknown 04/01/2025 12:46 PM EDT 04/01/2025 12:46 PM EDT us Geeta BOO LAB BLOOD ORDERABLES Final Re sult Performing Organization Address [facility]/ZIP Co de Phone Number [facility] [address] [place] [address], * Hemoglobin A1c (04/01/2025 12:46 PM EDT) [facility] Hemoglobin A1C 5.8 <6.5 % LAB CHEMISTRY METHOD 04/01/2025 8:[address] [facility] Mean Bld Glu Estim. 120 mg/dL LAB CHEMISTRY METHOD 04/01/2025 8:[address] [facility] Blood Venous blood specimen / Unknown Venipuncture / Unknown 04/01/2025 12:46 PM EDT 04/01/2025 12:46 PM EDT us Geeta BOO LAB BLOOD ORDERABLES Final Re sult Performing Organization Address [facility]/ZIP Co de Phone Number [facility] [address] [place] [address], [place] [phone] * (ABNORMAL) Comprehensive metabolic panel (04/01/2025 12:46 PM EDT) [facility] Sodium 135 133 - 145 mmol/L LAB CHEMISTRY METHOD 04/01/2025 4:[address] [facility] Potassium 4.7 3.5 - 5.5 mmol/L LAB CHEMISTRY METHOD 04/01/2025 4:[address] [facility] Chloride 100 96 - 110 mmol/L LAB CHEMISTRY METHOD 04/01/2025 4:[address] [facility] CO2 28 21 - 32 mmol/L LAB CHEMISTRY METHOD 04/01/2025 4:[address] [facility] Anion Gap 7 3 - 11 LAB CHEMISTRY METHOD 04/01/2025 4:[address] [facility] Glucose 103(H) 70 - 100 mg/dL LAB CHEMISTRY METHOD 04/01/2025 4:24 PM [facility] BUN 16 5 - 25 mg/dL LAB CHEMISTRY METHOD 04/01/2025 4:24 PM [facility] Creatinine 0.89 0.50 - 1.10 mg/dL LAB CHEMISTRY METHOD 04/01/2025 4:24 PM [facility] eGFR 65 >=60 mL/min/1. 73m2 LAB CHEMISTRY METHOD 04/01/2025 4:24 PM [facility] Comment:Calculation based on the Chronic Kidney Disease Epidemiology Collaboration (CKD-EPI) equation refit without adjustment for race. BUN/Creatinine Ratio 18.0 LAB CHEMISTRY METHOD 04/01/2025 4:24 PM [facility] Calcium 9.2 8.5 - 10.5 mg/dL LAB CHEMISTRY METHOD 04/01/2025 4:24 PM [facility] AST (SGOT) 28 10 - 42 unit/L LAB CHEMISTRY METHOD 04/01/2025 4:24 PM [facility] ALT (SGPT) 27 10 - 60 unit/L LAB CHEMISTRY METHOD 04/01/2025 4:24 PM [facility] Alkaline Phosphatase 69 42 - 121 unit/L LAB CHEMISTRY METHOD 04/01/2025 4:24 PM [facility] Total Protein 7.2 6.0 - 8.0 g/dL LAB CHEMISTRY METHOD 04/01/2025 4:24 PM [facility] Albumin 3.8 3.2 - 5.0 g/dL LAB CHEMISTRY METHOD 04/01/2025 4:24 PM [facility] Total Bilirubin 0.6 0.0 - 1.4 mg/dL LAB CHEMISTRY METHOD 04/01/2025 4:24 PM [facility] Blood Venous blood specimen / Unknown Venipuncture / Unknown 04/01/2025 12:46 PM EDT 04/01/2025 12:46 PM EDT Geeta BOO LAB BLOOD ORDERABLES Final Re sult Performing Organization Address [facility]/ZIP Co de Phone Number [facility] [address] [place] [address], [place] [phone] * ECG 12 lead (04/01/2025 9:42 AM EDT) Ventricular Rate ECG 58 BPM GEMUSE Atrial Rate 58 BPM GEMUSE P-R Interval 164 ms GEMUSE QRS Duration 94 ms GEMUSE Q-T Interval 464 ms GEMUSE QTc 455 ms GEMUSE P Wave [place] 76 degrees GEMUSE R [place] -54 degrees GEMUSE T [place] 88 degrees GEMUSE ECG Interpretation Sinus bradycardia Left anterior fascicular block Abnormal ECG When compared with ECG of 22-AUG-2024 11:02, Left anterior fascicular block is now Present Inverted T waves have replaced nonspecific T wave abnormality in Lateral leads Confirmed by Julia GRAY YUFENG ([id number]) on 04/01/2025 9:59:18 AM GEMUSE 04/01/2025 9:42 AM EDT 04/01/2025 9:59 AM EDT Jai Gray MD ECG ORDERABLES Final Result Performing Organization Address [facility] Co de Phone Number GEMUSE * Baterial identification and susceptibility, aerobic (03/26/2025 12:00 AM EDT) Culture, Bacterial ID and Sensitivity Light Normal Urogenital carmencita. 03/27/2025 11:[address] [facility] Other Urine specimen from urethra / Unknown 03/26/2025 03/27/2025 10:55 AM EDT Areli BOO LAB MICROBIOLOGY - GENERAL ORDERABLES Final Result Performing Organization Address [facility]/ZIP Co de Phone Number [facility] [address] [place] [address], [place] [phone] * DXA BONE DENSITY STUDY 1+ DEION ALFREDO SKEL (05/25/2023 9:09 AM EST) Anatomical Region Laterality Modality Bone Densitometr y 10/20/2022 10:3 3 AM EDT Narrative 05/25/2023 5:18 PM EST BONE DENSITY Lumbar Spine T-score is -0.6 (SD relative to 20-29 y/o adult) Z-score is +2.1 (SD relative to age matched peers) This is normal by criteria defined by the WHO. Left Hip T-score is -1.4 Z-score is +1.0 This is consistent with osteopenia by criteria defined by the WHO. Impression: Based on the World Health Organization criteria, Ashleigh Wagner should be classified as having osteopenia. This patient has a 28% risk of major osteoporotic fracture and a 14% risk of hip fracture over the next 10 years. (World Health Organization Fracture Risk Assessment) [facility] Department of Internal Medicine recommends using National Osteoporosis Foundation (NOF) guidelines in treatment decisions related to osteoporosis. NOF guidelines suggest considering treatment for postmenopausal women and men aged 50 or older presenting with the following: History of hip or vertebral fracture. T-score less than or equal to -2.5 (DXA) at the femoral neck, total hip, or spine, after appropriate evaluation to exclude secondary causes. Low bone mass (T-score between -1.0 and -2.5 at the femoral neck or spine) AND a 10-year probability of a hip fracture greater than or equal to 3% OR a 10-year probability of a major osteoporosis-related fracture greater than or equal to 20% based on the [place]-adapted WHO algorithm Please note that all treatment decisions require clinical judgment and consideration of individual patient factors, including patient preferences, co-morbidities, previous drug use, risk factors not captured in the FRAX model (e.g., frailty, falls, vitamin D deficiency, increased bone turnover, interval significant decline in bone density) and possible under- or over-estimation of fracture risk by FRAX. Procedure Note Zainab Johnson MD - 08/01/2023 BONE DENSITY Lumbar Spine T-score is -0.6 (SD relative to 20-29 y/o adult) Z-score is +2.1 (SD relative to age matched peers) This is normal by criteria defined by the WHO. Left Hip T-score is -1.4 Z-score is +1.0 This is consistent with osteopenia by criteria defined by the WHO. Impression: Based on the World Health Organization criteria, Ashleigh Wagner shouldbe classified as having osteopenia. This patient has a 28% risk of majorosteoporotic fracture and a 14% risk of hip fracture over the next 10years. (World Health Organization Fracture Risk Assessment) [facility] Department of Internal Medicine recommendsusing National Osteoporosis Foundation (NOF) guidelines in treatmentdecisions related to osteoporosis. NOF guidelines suggest consideringtreatment for postmenopausal women and men aged 50 or older presentingwith the following: History of hip or vertebral fracture. T-score less than or equal to -2.5 (DXA) at the femoral neck, total hip,or spine, after appropriate evaluation to exclude secondary causes. Low bone mass (T-score between -1.0 and -2.5 at the femoral neck or spine)AND a 10-year probability of a hip fracture greater than or equal to 3% ORa 10-year probability of a major osteoporosis-related fracture greaterthan or equal to 20% based on the [place]-adapted WHO algorithm Please note that all treatment decisions require clinical judgment andconsideration of individual patient factors, including patientpreferences, co-morbidities, previous drug use, risk factors not capturedin the FRAX model (e.g., frailty, falls, vitamin D deficiency, increasedbone turnover, interval significant decline in bone density) and possibleunder- or over-estimation of fracture risk by FRAX. 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 Care Decision (hx) 12/12/2022 AD [employer] DIRECTIVE Health Care Decision (hx) 12/12/2022 AD VELAZCO DIRECTIVE Health Care Decision (hx) 12/12/2022 AD VELAZCO DIRECTIVE Health Care Decision (hx) 12/12/2022 AD VELAZCO DIRECTIVE Health Care Decision (hx) 12/12/2022 AD VELAZCO DIRECTIVE Health Care Decision (hx) 12/12/2022 AD VELAZCO DIRECTIVE Health Care Decision (hx) 12/12/2022 AD VELAZCO DIRECTIVE Health Care Decision (hx) 12/12/2022 AD VELAZCO DIRECTIVE Health Care Decision (hx) 12/12/2022 AD VELAZCO DIRECTIVE 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
== END 2025-06-09 13:55 | disposition home or self-care (01) ==
PROVIDERS: PCP Internal Medicine; Visit Provider Physician Assistant
DX: M17.0 Bilateral primary osteoarthritis of knee (principal)
CPT/HCPCS: 20610

== ENCOUNTER → 2025-06-09 13:30 | Outpatient (BNVA) | payer OTHER, SELFPAY | PROVIDERS: PCP Internal Medicine; Visit Provider Physician Assistant | DX: M17.0 Bilateral primary osteoarthritis of knee (principal) | CPT/HCPCS: 20610; J2003; J3301 ==